=== PATIENT | male | born 1950 | race Caucasian/White ===

== ENCOUNTER → 2024-05-24 10:00 | Outpatient (REF) | payer BC, SELFPAY | LOC: HWRCS 10:00 | PROVIDERS: ATTENDING PHYSICIAN Internal Medicine Cardiovascular Disease; FAMILY PHYSICIAN Family Medicine | DX: I10 Essential (primary) hypertension (principal); I48.91 Unspecified atrial fibrillation | CPT/HCPCS: 93306 ==

== ENCOUNTER → 2024-05-28 12:19 | Outpatient (REF) | payer BC, SELFPAY | LOC: HWRAD 12:19 | PROVIDERS: ATTENDING PHYSICIAN Internal Medicine Cardiovascular Disease; FAMILY PHYSICIAN Family Medicine | DX: I10 Essential (primary) hypertension (principal); I48.91 Unspecified atrial fibrillation; I65.22 Occlusion and stenosis of left carotid artery | CPT/HCPCS: 93880 ==